=== PATIENT | male | born 1935 | race Caucasian/White ===

== ENCOUNTER 2020-12-22 19:11 | Emergency (ER) | payer MEDICARE, OTHER ==
[~2020-12-22] VITALS: Ht 180.3 cm; Wt 77.1 kg
[2020-12-22] MEDS ORDERED: ACETAMINOPHEN 325 MG TAB PO ONE (19:45)
[2020-12-22 21:16] LABS: BASOPHILS % 0.2 % (0.0-1.0); EOSINOPHILS # (AUTO) 0.1 (0.0-0.4); EOSINOPHILS % 0.6 % (0.0-6.0); HEMATOCRIT 47.5 % (38.2-49.6); HEMOGLOBIN 15.6 g/dL (14.0-18.0); LYMPHOCYTES # (AUTO) 0.9 (1.0-3.2); LYMPHOCYTES % 7.3 % (18.0-39.1); MEAN CORPUSCULAR HEMOGLOBIN 31.9 pg (28-32); MEAN CORPUSCULAR HGB CONC 32.8 g/dL (31-35); MEAN CORPUSCULAR VOLUME 97.1 fL (81-99); MONOCYTES % 8.2 % (4.4-11.3); NEUTROPHILS # (AUTO) 10.3 (2.1-6.9); NEUTROPHILS % 83.3 % (38.7-80.0); PLATELET COUNT 173 x10e3/uL (140-360); RED BLOOD COUNT 4.89 x10e6/uL (4.3-5.7); RED CELL DISTRIBUTION WIDTH 12.8 % (11.7-14.4)
[2020-12-22 21:22] LABS: PROTHROMBIN TIME 13.4 seconds (11.9-14.5)
[2020-12-22 21:23] LABS: PARTIAL THROMBOPLASTIN TIME 27.5 seconds (23.8-35.5)
[2020-12-22 21:29] LABS: ANION GAP 15.3 mmol/L (8-16); CALCIUM 10.2 mg/dL (8.4-10.2); CREATININE, SERUM 0.96 mg/dL (0.72-1.25); POTASSIUM 4.3 mmol/L (3.5-5.1)
[2020-12-22 22:26] VITALS: BP 135/76
== END 2020-12-22 22:28 | disposition other institution (70) ==
LOC: ER 19:55
DX: S12.500A Unspecified displaced fracture of sixth cervical vertebra, initial encounter for closed fracture (principal); S22.060A Wedge compression fracture of T7-T8 vertebra, initial encounter for closed fracture; V43.52XA Car driver injured in collision with other type car in traffic accident, initial encounter; Y92.488 Other paved roadways as the place of occurrence of the external cause; K21.9 Gastro-esophageal reflux disease without esophagitis
CPT/HCPCS: 36415; 70450; 72125; 72128; 80048; 85025; 85610; 85730; 99284

== ENCOUNTER 2023-07-10 08:56 | Observation (INO) | payer MEDICARE ==
[~2023-07-10] VITALS: Ht 177.8 cm; Wt 70.3 kg
[2023-07-10 09:36] LABS: BASOPHILS % 0.1 % (0.0-1.0); EOSINOPHILS % 0.5 % (0.0-6.0); HEMATOCRIT 41.8 % (38.2-49.6); HEMOGLOBIN 14.6 g/dL (14.0-18.0); LYMPHOCYTES # (AUTO) 0.8 (1.0-3.2); MEAN CORPUSCULAR HEMOGLOBIN 33.3 pg (28-32); MEAN CORPUSCULAR HGB CONC 34.9 g/dL (31-35); MEAN CORPUSCULAR VOLUME 95.4 fL (81-99); MONOCYTES # (AUTO) 0.8 (0.2-0.8); MONOCYTES % 9.2 % (4.4-11.3); PLATELET COUNT 174 x10e3/uL (140-360); RED BLOOD COUNT 4.38 x10e6/uL (4.3-5.7); RED CELL DISTRIBUTION WIDTH 12.5 % (11.7-14.4); WHITE BLOOD COUNT 8.58 x10e3/uL (4.8-10.8)
[2023-07-10 09:53] LABS: ALBUMIN/GLOBULIN RATIO 1.4 (0.8-2.0); ANION GAP 12.7 mmol/L (8-16); BILIRUBIN,TOTAL 0.9 mg/dL (0.2-1.2); CREATININE, SERUM 0.87 mg/dL (0.72-1.25); POTASSIUM 3.7 mmol/L (3.5-5.1); TOTAL PROTEIN 6.8 g/dL (6.5-8.1)
[2023-07-10 10:17] LABS: TROPONIN I 0.006 ng/mL (0-0.300)
[2023-07-10] MEDS: SODIUM CHLORIDE 0.9% 500ML 500 ML IV ONE (11:01)
[2023-07-10] MEDS: SODIUM CHLORIDE FLUSH 10 ML SYR IV PRN (11:02)
[2023-07-10] MEDS ORDERED: SODIUM CHLORIDE 0.9% 500ML 500 ML ONE (11:03)
[2023-07-10] MEDS ORDERED: SODIUM CHLORIDE FLUSH 10 ML SYR INJ PRN (12:15)
[2023-07-10] MEDS ORDERED: ONDANSETRON HCL INJ 2MG/ML 2ML 2 MG/ML VIAL IV PRN (12:15)
[2023-07-10] MEDS ORDERED: BENZONATATE 100 MG CAP ONE (12:31)
[2023-07-10] MEDS ORDERED: ASPIRIN 81 MG CHEW TAB ONE (12:31)
[2023-07-10] MEDS: ASPIRIN 81 MG CHEW TAB PO ONE (12:33)
[2023-07-10] MEDS: BENZONATATE 100 MG CAP PO PRN (12:33)
[2023-07-10] MEDS ORDERED: FINASTERIDE5 MG PO (12:37)
[2023-07-10] MEDS ORDERED: AMOXICILLIN500 MG PO (12:37)
[2023-07-10] MEDS ORDERED: FLOMAX0.4 MG PO (12:37)
[2023-07-10] MEDS ORDERED: SODIUM CHLORIDE 0.9% INJ 500 ML BAG ONE (13:53)
[2023-07-10 14:40] VITALS: BP 122/77; PULSE 73; RESP 22; TEMP 98.1; O2SAT 95
[2023-07-10 15:24] VITALS: BP 160/62; PULSE 51; RESP 16; TEMP 97; O2SAT 100
[2023-07-10 16:26] LABS: CREATINE KINASE 89 IU/L (30-200)
[2023-07-10] MEDS: SODIUM CHLORIDE 0.9% 1000ML 1,000 ML IV SCH (17:01)
[2023-07-10] MEDS: GUAIFENESIN/CODEINE 5 ML LIQD PO PRN (17:01)
[2023-07-10 17:06] LABS: TROPONIN I < 0.05 ng/mL (0.0-0.40)
[2023-07-10 20:00] VITALS: BP 128/88; PULSE 71; RESP 18; TEMP 98; O2SAT 93
[2023-07-10 21:00] VITALS: BP_SYST 128; BP_DIAS 80; BP_DIAS 88; PULSE 71; RESP 18; TEMP 98; O2SAT 93
[2023-07-10 23:30] LABS: TROPONIN I < 0.05 ng/mL (0.0-0.40)
[2023-07-11] VITALS (10 sets, daily range): BP systolic 113–140; BP diastolic 70–81; PULSE 64–104; RESP 15–20; TEMP 97.6–98.1; O2SAT 94–98
[2023-07-11] MEDS ORDERED: BENZONATATE 100 MG CAP PO ONE (00:42)
[2023-07-11 05:37] LABS: BASOPHILS % 0.1 % (0.0-1.0); EOSINOPHILS # (AUTO) 0.1 (0.0-0.4); EOSINOPHILS % 1.5 % (0.0-6.0); HEMATOCRIT 44.7 % (38.2-49.6); HEMOGLOBIN 14.6 g/dL (14.0-18.0); LYMPHOCYTES # (AUTO) 1.1 (1.0-3.2); LYMPHOCYTES % 11.8 % (18.0-39.1); MEAN CORPUSCULAR HEMOGLOBIN 32.4 pg (28-32); MEAN CORPUSCULAR HGB CONC 32.7 g/dL (31-35); MEAN CORPUSCULAR VOLUME 99.1 fL (81-99); MONOCYTES # (AUTO) 0.7 (0.2-0.8); NEUTROPHILS % 78.3 % (38.7-80.0); PLATELET COUNT 196 x10e3/uL (140-360); RED BLOOD COUNT 4.51 x10e6/uL (4.3-5.7); RED CELL DISTRIBUTION WIDTH 12.9 % (11.7-14.4); WHITE BLOOD COUNT 8.88 x10e3/uL (4.8-10.8)
[2023-07-11 06:24] LABS: ALBUMIN/GLOBULIN RATIO 1.4 (0.8-2.0); ANION GAP 14.6 mmol/L (8-16); BILIRUBIN,TOTAL 1.1 mg/dL (0.2-1.2); CALCIUM 10.2 mg/dL (8.4-10.2); CREATININE, SERUM 0.85 mg/dL (0.72-1.25); POTASSIUM 4.6 mmol/L (3.5-5.1); TOTAL PROTEIN 6.8 g/dL (6.5-8.1)
[2023-07-11 08:34] LABS: TROPONIN I 0.009 ng/mL (0-0.300)
[2023-07-11] MEDS ORDERED: ALBUTEROL/IPRATROPIUM 3 ML NEB NEB PRN (08:45)
[2023-07-11] MEDS: LORATADINE/PSEUDOEPHEDRINE 24 HR SR TAB PO SCH (09:47)
[2023-07-11] MEDS: AMOXICILLIN/CLAVULANATE K 500 MG TAB PO SCH (09:47)
[2023-07-11] MEDS: FAMOTIDINE 20 MG TAB PO SCH (09:47)
[2023-07-11] MEDS: TAMSULOSIN HCL 0.4 MG CAP PO SCH (09:47)
[2023-07-11] MEDS: BENZONATATE 100 MG CAP PO SCH (09:47)
[2023-07-11] MEDS: METHYLPREDNISOLONE SOD SUCC 40 MG/ML VIAL 1ML IV SCH (09:47)
[2023-07-11] MEDS ORDERED: FAMOTIDINE 20 MG/2 ML VIAL IV ONE (12:59)
[2023-07-11] MEDS ORDERED: SODIUM CHLORIDE 0.9% 1000 ML BAG ONE (12:59)
[2023-07-11] MEDS ORDERED: BENZONATATE 100 MG CAP ONE (12:59)
[2023-07-11] MEDS ORDERED: METHYLPREDNISOLONE SOD SUCC 40 MG/ML VIAL 1ML ONE ×2 (12:59→20:49)
[2023-07-11] MEDS ORDERED: LORATADINE/PSEUDOEPHEDRINE 24 HR SR TAB PO ONE (12:59)
[2023-07-11] MEDS ORDERED: AMOXICILLIN/CLAVULANATE K 500 MG TAB ONE (12:59)
[2023-07-11] MEDS ORDERED: TAMSULOSIN HCL 0.4 MG CAP ONE (12:59)
[2023-07-11] MEDS ORDERED: GUAIFENESIN/CODEINE 5 ML LIQD ONE (12:59)
[2023-07-11] MEDS: ALBUTEROL/IPRATROPIUM 3 ML NEB NEB SCH (13:00)
[2023-07-11] MEDS: FINASTERIDE 5 MG TAB PO SCH (17:24)
[2023-07-11] MEDS ORDERED: AMOXICILLIN/CLAVULANATE K 500 MG TAB PO ONE (20:49)
[2023-07-11] MEDS ORDERED: MONTELUKAST SODIUM 10 MG TAB PO ONE (20:50)
[2023-07-11] MEDS: MONTELUKAST SODIUM 10 MG TAB PO SCH (21:19)
[2023-07-12] VITALS (7 sets, daily range): BP systolic 111–138; BP diastolic 65–93; PULSE 82–92; RESP 18–20; TEMP 97.8–98; O2SAT 92–97
[2023-07-12] MEDS ORDERED: FAMOTIDINE 20 MG TAB ONE (08:04)
[2023-07-12] MEDS ORDERED: AMOXICILLIN/CLAVULANATE K 500 MG TAB ONE (08:04)
[2023-07-12] MEDS ORDERED: LORATADINE/PSEUDOEPHEDRINE 24 HR SR TAB PO ONE (08:05)
[2023-07-12] MEDS ORDERED: TAMSULOSIN HCL 0.4 MG CAP ONE (08:05)
[2023-07-12] MEDS ORDERED: METHYLPREDNISOLONE SOD SUCC 40 MG/ML VIAL 1ML ONE (08:05)
[2023-07-12 10:08] LABS: CHOL/HDL RATIO 2.9 (3.9-4.7)
[2023-07-12] MEDS: METOPROLOL SUCCINATE 25 MG TAB XL PO SCH (10:16)
[2023-07-12] MEDS ORDERED: METOPROLOL SUCCINATE 25 MG TAB XL ONE (10:18)
[2023-07-12] MEDS ORDERED: ONDANSETRON HCL 4 MG ORAL DISINTEGRATING TAB PO PRN (11:15)
== END 2023-07-12 12:26 | disposition home or self-care (01) ==
LOC: ER 09:08 → ERHOLD 12:24 → MED/SURG3 14:45
PROVIDERS: ADMIT Internal Medicine; ATTEND Internal Medicine
DX: J20.9 Acute bronchitis, unspecified (principal); J30.89 Other allergic rhinitis; J32.0 Chronic maxillary sinusitis; R42 Dizziness and giddiness; I49.1 Atrial premature depolarization; I49.3 Ventricular premature depolarization; K21.9 Gastro-esophageal reflux disease without esophagitis; N40.0 Benign prostatic hyperplasia without lower urinary tract symptoms; Z11.52 Encounter for screening for COVID-19; Z79.899 Other long term (current) drug therapy
CPT/HCPCS: 36415 ×3; 70450; 71046; 80053 ×2; 80061; 82550 ×2; 83735; 83880; 84443; 84484 ×2; 85025 ×2; 87400; 93005; 93306; 94640 ×3; 94760; 94799 ×2; 99284; G0378 ×3; J2919 ×2; J7030; J7040; U0002